=== PATIENT | female | born 1955 | race African-American/Black ===

== ENCOUNTER 2021-09-28 12:20 | Emergency (ER) | payer MEDICAID, OTHER ==
[~2021-09-28] VITALS: Ht 157.5 cm; Wt 64.0 kg
[2021-09-28] MEDS ORDERED: ACETAMINOPHEN 325MG TABLET PO STA (14:11)
[2021-09-28 15:56] LABS: BASOPHILS % 0.6 % (0.0-2.0); EOSINOPHILS % 1.2 % (0.0-5.0); HEMATOCRIT. 45.4 % (36.0-48.0); HEMOGLOBIN. 15.3 g/dL (12.0-16.0); LYMPHOCYTES % 33.2 % (20.0-50.0); MEAN CORPUSCULAR HEMOGLOBIN 29.9 pg (28.0-32.0); MEAN CORPUSCULAR VOLUME 88.8 fL (81.0-99.0); MEAN PLATELET VOLUME 9.5 fl (7.4-10.4); MONOCYTES % 8.7 % (2.0-8.0); NEUTROPHILS % 56.3 % (40.0-76.0); PLATELET 203 x1000/uL (130-400); RED BLOOD CELL COUNT 5.12 mill/uL (4.2-5.4)
[2021-09-28 16:01] LABS: CHLORIDE 102 mEq/L (98-107)
[2021-09-28] MEDS ORDERED: CARI250T MT (16:42)
[2021-09-28] MEDS ORDERED: NAPR-681 MT (16:42)
[2021-09-28] MEDS ORDERED: KETOROLAC 30MG/ML VIAL IM ONE (16:45)
[2021-09-28 16:49] VITALS: BP 137/89
== END 2021-09-28 16:57 | disposition home or self-care (01) ==
LOC: ER 12:20
DX: S16.1XXA Strain of muscle, fascia and tendon at neck level, initial encounter (principal); G44.209 Tension-type headache, unspecified, not intractable; I10 Essential (primary) hypertension; Z88.0 Allergy status to penicillin; Z96.659 Presence of unspecified artificial knee joint; X58.XXXA Exposure to other specified factors, initial encounter; Y93.89 Activity, other specified; Y92.018 Other place in single-family (private) house as the place of occurrence of the external cause
CPT/HCPCS: 36415; 71045; 80053; 83605; 83690; 83880; 84484; 85025; 96372; 99284; J1885